=== PATIENT | male | born 1995 | race Caucasian/White ===

== ENCOUNTER 2017-07-27 18:41 | Emergency (ER) | payer SELFPAY ==
[~2017-07-27] VITALS: Ht 172.7 cm; Wt 71.2 kg
[2017-07-27 18:56] VITALS: BP 109/57
--- NOTE | 2017-07-27 19:03 | NUR ---
PT TRIAGED. AMBULATED BACK TO ER LOBBY, WAITING FOR ER BED. ERMD NOTIFIED OF PATIENT STATUS.
--- NOTE | 2017-07-27 22:44 | NUR ---
22Y/M PT. PRESENST TO ED WITH C/O LACERATIONS TO LT. INDEX FINGER. NO MEDICAL HX. AAO X4, AMBULATORY WITH STEADY GAIT. LT.INDEX FINGER LACERATION CLEANSE WITH NSS, NO ACTIVE BLEEIDNG. VSS, ER MADE AWARE OF PT. STATUS.
--- NOTE | 2017-07-28 00:06 | NUR ---
DR. VOSS PERFORMS SUTURE
[2017-07-28] MEDS ORDERED: LIDOCAINE 1% ***ER ONLY *** 10 MG/ML VIAL INJ ONE (00:15)
[2017-07-28] MEDS ORDERED: NEOMYCIN/POLYMYXIN/BACITRACIN 0.9 GM/1 PKT TP ONE (00:15)
--- NOTE | 2017-07-28 00:44 | NUR ---
Patient discharged with v/s stable. Written and verbal after care instructions given and explained. Patient verbalized understanding. Ambulatory with steady gait. All questions addressed prior to discharge. Advised to follow up with PMD.
[2017-07-28 05:27] VITALS: BP 125/58
== END 2017-07-28 00:44 | disposition home or self-care (01) ==
LOC: MED 18:41
DX: S61.211A Laceration without foreign body of left index finger without damage to nail, initial encounter (principal); W27.8XXA Contact with other nonpowered hand tool, initial encounter; Y93.89 Activity, other specified; Y92.89 Other specified places as the place of occurrence of the external cause; Y99.8 Other external cause status
CPT/HCPCS: 12001; 90471; 90715; 99283